=== PATIENT | male | born 1960 | race Caucasian/White ===

== ENCOUNTER → 2016-07-04 | Outpatient (CLI) | payer BC ==
[2016-07-04 11:29] LABS: ALT 62 U/L (21-72); AST 34 U/L (17-59); Alkaline Phosphatase 68 U/L (38-126); Anion Gap 10 mmol/L; Blood Urea Nitrogen 15 mg/dL (9-20); Calcium 9.4 mg/dL (8.4-10.2); Carbon Dioxide 27 mmol/L (22-30); Chloride 106 mmol/L (98-107); Cholesterol 224 mg/dL (<200); Glucose 114 mg/dL (74-99); HDL Cholesterol 38 mg/dL (40-60); Non-African American GFR(MDRD) >60 (>60 ml/min/1.73 sqM); Potassium 4.7 mmol/L (3.5-5.1); Sodium 143 mmol/L (137-145); Total Bilirubin 1.4 mg/dL (0.2-1.3); Total Protein 7.6 g/dL (6.3-8.2); Triglycerides 212 mg/dL (<150)
== END | disposition home or self-care (01) ==
LOC: LABWHC1 10:25
PROVIDERS: ATTEND Internal Medicine Interventional Cardiology
DX: E78.2 Mixed hyperlipidemia (principal)
CPT/HCPCS: 36415; 80053; 80061

== ENCOUNTER 2017-11-19 05:15 | Emergency (ER) | payer BC ==
[2017-11-19 05:22] VITALS: PULSE 78
[2017-11-19] MEDS ORDERED: ONDANSETRON 4 MG/2 ML VIAL IVP STA (05:41)
[2017-11-19 05:42] LABS: Basophils % (A) 1 %; Eosinophils # (A) 0.1 k/uL (0-0.7); Eosinophils % (A) 2 %; HCT 45.8 % (39.0-53.0); HGB 15.4 gm/dL (13.0-17.5); Lymphocytes % (A) 34 %; MCHC 33.7 g/dL (31.0-37.0); MCV 86.1 fL (80.0-100.0); Mean Platelet Volume 7.1; Monocytes # (A) 0.4 k/uL (0-1.0); Monocytes % (A) 7 %; Neutrophils # (A) 3.2 k/uL (1.3-7.7); Neutrophils % (A) 54 %; Platelet Count 207 k/uL (150-450); RBC 5.32 m/uL (4.30-5.90); RDW 14.2 % (11.5-15.5); WBC 5.8 k/uL (3.8-10.6)
--- NOTE | 2017-11-19 05:44 | ED ---
Abdominal Pain HPI - General Chief Complaint: Abdominal Pain Stated Complaint: Side pain Time Seen by Provider: 11/19/17 05:25 Source: patient Mode of arrival: ambulatory Limitations: no limitations - History of Present Illness Initial Comments: This patient's 57-year-old man who presents to be evaluated for right flank pain that he states woke him from sleep about 3:30. He describes as sharp, constant, it was initially mild to moderate but now has become severe. He states that while he was coming here to be seen about this she did have an episode of vomiting. He denies history of similar. He has not noted worsening or relieving factors. No other associated symptoms, including no fever or chills, no chest pain, cough or dyspnea. No change in urination or bowel movements. No symptoms to the legs. MD Complaint: abdominal pain Onset/Timin -: hour(s) Location: R flank Radiation: none Migration to: no migration Severity: severe Quality: sharp Consistency: constant Improves With: nothing Worsens With: nothing Associated Symptoms: nausea, vomiting - Related Data Home Medications Medication Instructions Recorded Confirmed Ezetimibe [Zetia] 10 mg PO DAILY 11/19/17 11/19/17 Previous Rx's Medication Instructions Recorded Ketorolac [Toradol] 10 mg PO Q6HR PRN #15 tab 11/19/17 Ondansetron Odt [Zofran ODT] 4 mg PO Q8HR PRN #10 tab 11/19/17 Tamsulosin [Flomax] 0.4 mg PO DAILY #14 cap 11/19/17 Allergies Allergy/AdvReac Type Severity Reaction Status Date / Time iodine Allergy Rash/Hives Verified 11/19/17 05:23 Review of Systems ROS Statement: Those systems with pertinent positive or pertinent negative responses have been documented in the HPI. ROS Other: All systems not noted in ROS Statement are negative. Constitutional: Denies: fever, chills Respiratory: Denies: cough, dyspnea Cardiovascular: Denies: chest pain, palpitations Gastrointestinal: Reports: abdominal pain, nausea, vomiting. Denies: diarrhea, constipation, hematemesis Genitourinary: Denies: dysuria, hematuria Musculoskeletal: Denies: back pain Skin: Denies: rash Neurological: Denies: headache, weakness, numbness Past Medical History Past Medical History: Hyperlipidemia History of Any Multi-Drug Resistant Organisms: None Reported Past Surgical History: Orthopedic Surgery Additional Past Surgical History / Comment(s): back sx. Past Psychological History: No Psychological Hx Reported Smoking Status: Never smoker Past Alcohol Use History: Occasional Past Drug Use History: None Reported General Exam Limitations: no limitations General appearance: alert, in no apparent distress, obese Head exam: Present: atraumatic, normocephalic Eye exam: Present: normal appearance. Absent: scleral icterus, conjunctival injection ENT exam: Present: normal oropharynx Neck exam: Present: normal inspection Respiratory exam: Present: normal lung sounds bilaterally. Absent: respiratory distress, wheezes, rales, rhonchi, stridor Cardiovascular Exam: Present: regular rate, normal rhythm, normal heart sounds. Absent: systolic murmur, diastolic murmur, rubs, gallop GI/Abdominal exam: Present: soft. Absent: distended, tenderness, guarding, rebound, rigid, mass, pulsatile mass, hernia Extremities exam: Present: normal inspection, normal capillary refill. Absent: pedal edema, calf tenderness Back exam: Present: normal inspection. Absent: CVA tenderness (R), CVA tenderness (L) Neurological exam: Present: alert Skin exam: Present: warm, dry, intact, normal color. Absent: rash Course Vital Signs 11/19/17 05:19 Temperature 97.8 F Pulse Rate 78 Respiratory 20 Rate Blood Pressure 178/101 O2 Sat by Pulse 96 Oximetry Medical Decision Making - Lab Data Result diagrams: 11/19/17 05:29 11/19/17 05:29 Lab Results 11/19/17 11/19/17 Range/Units 05:29 05:29 WBC 5.8 (3.8-10.6) k/uL RBC 5.32 (4.30-5.90) m/uL Hgb 15.4 (13.0-17.5) gm/dL Hct 45.8 (39.0-53.0) % MCV 86.1 (80.0-100.0) fL MCH 29.0 (25.0-35.0) pg MCHC 33.7 (31.0-37.0) g/dL RDW 14.2 (11.5-15.5) % Plt Count 207 (150-450) k/uL Neutrophils % 54 % Lymphocytes % 34 % Monocytes % 7 % Eosinophils % 2 % Basophils % 1 % Neutrophils # 3.2 (1.3-7.7) k/uL Lymphocytes # 2.0 (1.0-4.8) k/uL Monocytes # 0.4 (0-1.0) k/uL Eosinophils # 0.1 (0-0.7) k/uL Basophils # 0.0 (0-0.2) k/uL Sodium 143 (137-145) mmol/L Potassium 4.4 (3.5-5.1) mmol/L Chloride 106 (98-107) mmol/L Carbon Dioxide 24 (22-30) mmol/L Anion Gap 13 mmol/L BUN 21 H (9-20) mg/dL Creatinine 1.28 H (0.66-1.25) mg/dL Est GFR (CKD-EPI)AfAm 72 (>60 ml/min/1.73 sqM) Est GFR (CKD-EPI)NonAf 62 (>60 ml/min/1.73 sqM) Glucose 181 H (74-99) mg/dL Calcium 9.2 (8.4-10.2) mg/dL Total Bilirubin 0.9 (0.2-1.3) mg/dL AST 36 (17-59) U/L ALT 51 (21-72) U/L Alkaline Phosphatase 73 (38-126) U/L Total Protein 6.9 (6.3-8.2) g/dL Albumin 4.4 (3.5-5.0) g/dL Amylase 63 (30-110) U/L Lipase 94 (23-300) U/L Disposition Clinical Impression: Calculus of kidney Disposition: HOME SELF-CARE Condition: Good Instructions: Kidney Stones (ED) Prescriptions: Ketorolac [Toradol] 10 mg PO Q6HR PRN #15 tab PRN Reason: Pain Ondansetron Odt [Zofran ODT] 4 mg PO Q8HR PRN #10 tab PRN Reason: Nausea Tamsulosin [Flomax] 0.4 mg PO DAILY #14 cap Is patient prescribed a controlled substance at d/c from ED?: No Referrals: Alicia Carrion DO [Primary Care Provider] - 1-2 days
[2017-11-19] MEDS: MORPHINE SULFATE 2 MG/ML SYRINGE IV STA ×2 (05:46→06:28)
[2017-11-19 05:53] LABS: Albumin 4.4 g/dL (3.5-5.0); Calcium 9.2 mg/dL (8.4-10.2); Potassium 4.4 mmol/L (3.5-5.1); Total Bilirubin 0.9 mg/dL (0.2-1.3); Total Protein 6.9 g/dL (6.3-8.2)
[2017-11-19] MEDS ORDERED: KETOROLAC 30 MG/ML 1 ML VIAL IVP STA (06:20)
[2017-11-19] MEDS ORDERED: MORPHINE SULFATE 2 MG/ML SYRINGE IV STA ×2 (06:20→07:31)
[2017-11-19] MEDS ORDERED: TAMSULOSIN 0.4 MG CAP.ER.24H PO STA (06:22)
--- NOTE | 2017-11-19 07:14 | CT ---
EXAM: CT Abdomen and Pelvis Without Intravenous Contrast. CLINICAL HISTORY: Right flank pain. TECHNIQUE: Axial computed tomography images of the abdomen and pelvis without intravenous contrast. CTDI is 23.7 mGy and DLP is 1320 mGy-cm. This CT exam was performed using one or more of the following dose reduction techniques: automated exposure control, adjustment of the mA and/or kV according to patient size, and/or use of iterative reconstruction technique. COMPARISON: No relevant prior studies available. FINDINGS: Lower thorax: No acute findings. ABDOMEN: Liver: Hepatic steatosis. Within the limitations of a nonenhanced exam, no focal hepatic lesion is identified. Gallbladder and bile ducts: Unremarkable. No calcified stones. No ductal dilation. Pancreas: Unremarkable. No ductal dilation. Spleen: Unremarkable. No splenomegaly. Adrenals: Unremarkable. No mass. Kidneys and ureters: There is a 3 mm calculus at the right ureterovesical junction, with mild right-sided hydronephrosis and hydroureter. Findings are consistent with right-sided obstructive uropathy. No additional calculi are seen within the renal collecting systems, ureters or urinary bladder. PELVIS: Bladder: Unremarkable. No stones. Reproductive: Unremarkable as visualized. Appendix: No findings to suggest acute appendicitis. ABDOMEN + PELVIS: Stomach and bowel: No evidence of bowel obstruction. No definite bowel wall thickening. Scattered colonic diverticula without evidence of acute diverticulitis. Peritoneum: Unremarkable. No significant fluid collection. No free air. Lymph nodes: Unremarkable. No enlarged lymph nodes. Vasculature: Unremarkable. No aortic aneurysm. Bones: No acute fracture. Lumbar stabilization hardware seen at L3 and L4. IMPRESSION: 3 mm obstructing calculus at right UVJ with mild right-sided hydroureteronephrosis. Findings consistent with right-sided obstructive uropathy. Hepatic steatosis. Scattered colonic diverticula without evidence of acute diverticulitis..
[2017-11-19 07:44] VITALS: BP 160/82; RESP 18; TEMP 96.8
== END 2017-11-19 08:04 | disposition home or self-care (01) ==
LOC: EC 05:15
DX: N20.0 Calculus of kidney (principal); E78.5 Hyperlipidemia, unspecified; Z79.899 Other long term (current) drug therapy; Z88.8 Allergy status to other drugs, medicaments and biological substances; Z53.8 Procedure and treatment not carried out for other reasons
CPT/HCPCS: 36415; 80053; 82150; 83690; 85025; 74176; 99284; 96374; 96375 ×2; 96376; J2405; J1885; J2270

== ENCOUNTER 2018-12-06 11:23 | Emergency (ER) | payer BC ==
[2018-12-06 11:45] VITALS: RESP 18
--- NOTE | 2018-12-06 11:56 | ED ---
General Adult HPI - General Chief complaint: Extremity Problem,Nontraumatic Stated complaint: lt knee pain Time Seen by Provider: 12/06/18 11:48 Source: patient, family, RN notes reviewed Mode of arrival: wheelchair Limitations: no limitations - History of Present Illness Initial comments: 58-year-old male presents to the emergency department for a chief complaint of left knee pain 4 days. 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 States he noticed this pain while walking. States it is mostly anterior knee pain. States it does not hurt unless he is walking on it. States it does not hurt to bend or if he is just laying there. Denies fevers or chills. Denies any redness or swelling to the knee. Denies any specific injuries. States he [facility] but they did not take walk-ins so he came here.she does have chronic back pain and did have surgery on his left ankle earlier this year due to impingement. Patient has no other complaints at this time including shortness of breath, chest pain, abdominal pain, nausea or vomiting, headache, or visual changes. - Related Data Home Medications Medication Instructions Recorded Confirmed Ezetimibe [Zetia] 10 mg PO DAILY 11/19/17 12/06/18 Ibuprofen [Motrin Ib] 600 mg PO Q6H PRN 12/06/18 12/06/18 Allergies Allergy/AdvReac Type Severity Reaction Status Date / Time iodine Allergy Rash/Hives Verified 12/06/18 11:58 Review of Systems ROS Statement: Those systems with pertinent positive or pertinent negative responses have been documented in the HPI. ROS Other: All systems not noted in ROS Statement are negative. Past Medical History Past Medical History: Hyperlipidemia History of Any Multi-Drug Resistant Organisms: None Reported Past Surgical History: Orthopedic Surgery Additional Past Surgical History / Comment(s): back sx. Past Psychological History: No Psychological Hx Reported Smoking Status: Never smoker Past Alcohol Use History: Occasional Past Drug Use History: None Reported General Exam Limitations: no limitations General appearance: alert, in no apparent distress Head exam: Present: atraumatic, normocephalic, normal inspection Eye exam: Present: normal appearance, PERRL, EOMI. Absent: scleral icterus, conjunctival injection, periorbital swelling ENT exam: Present: normal exam, mucous membranes moist Neck exam: Present: normal inspection, full ROM. Absent: tenderness, meningismus Respiratory exam: Present: normal lung sounds bilaterally. Absent: respiratory distress, wheezes, rales, rhonchi, stridor Cardiovascular Exam: Present: regular rate, normal rhythm, normal heart sounds. Absent: systolic murmur, diastolic murmur, rubs, gallop, clicks Extremities exam: Present: normal inspection, full ROM (4 range of motion of the left knee), normal capillary refill (Capillary refill less than 2 seconds, DP pulse 2+.). Absent: tenderness (No tenderness to the left knee), pedal edema, joint swelling (No swelling or erythema noted to the left knee. No evidence of infection.), calf tenderness (No tenderness of the left calf) Course Vital Signs 12/06/18 11:41 Temperature 98.9 F Pulse Rate 90 Respiratory 18 Rate Blood Pressure 125/73 O2 Sat by Pulse 96 Oximetry Medical Decision Making - Medical Decision Making 58-year-old male presents for left knee pain 4 days. 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 States he noticed the anterior knee pain while walking. States today he felt a pop. It is does not hurt unless he is walking on it. On exam full range motion, no erythema, no evidence of infection. Patient is able to family but does limp on the knee. Neurovascular status intact in the left lower extremity. X-ray of the left knee shows joint effusion without fracture or dislocation. Concern for ligamentous injury. Patient was put in a knee immobilizer and given crutches. Recommended orthopedics follow-up. Recommended returning if he has any worsening symptoms. Disposition Clinical Impression: Knee pain, left Disposition: HOME SELF-CARE Condition: Good Instructions (If sedation given, give patient instructions): Knee Pain (ED) Additional Instructions: Please use knee immobilizer as directed. Please use crutches as needed. Take Motrin and Tylenol for pain. Follow-up with primary care in 1-2 days. Return to the emergency department if you have any worsening symptoms. Is patient prescribed a controlled substance at d/c from ED?: No Referrals: Alicia Carrion DO [Primary Care Provider] - 1-2 days Charbel Whitehead MD [STAFF PHYSICIAN] - 1-2 days Time of Disposition: 12:53
--- NOTE | 2018-12-06 12:32 | XR ---
Left knee HISTORY: pain, swelling 3 views of the left knee Bone mineralization, joint spaces and alignment are maintained. Suprapatellar increased density is no carmenza. IMPRESSION: Joint effusion. No fracture or dislocation.
[2018-12-06 13:16] VITALS: BP 127/75; PULSE 82; TEMP 98.8
== END 2018-12-06 13:15 | disposition home or self-care (01) ==
LOC: EC 11:23
DX: M25.562 Pain in left knee (principal); G89.29 Other chronic pain; M54.9 Dorsalgia, unspecified; E78.5 Hyperlipidemia, unspecified; Z91.048 Other nonmedicinal substance allergy status; Z79.899 Other long term (current) drug therapy; Z98.890 Other specified postprocedural states
CPT/HCPCS: 73562; 99283; L1830

== ENCOUNTER → 2018-12-15 | Outpatient (CLI) | payer BC ==
--- NOTE | 2018-12-15 08:24 | MR ---
EXAMINATION TYPE: MR knee LT wo con DATE OF EXAM: 12/15/2018 COMPARISON: X-ray dated 12/08/2018 HISTORY: Left knee pain TECHNIQUE: Multiplanar, multisequence imaging of the left knee is performed without IV contrast. FINDINGS: Quadriceps and patellar tendons intact. Anterior cruciate and posterior cruciate ligaments intact. Th ere is a small focal area of marrow edema involving the posterior lateral tibial plateau. There is a complex tear involving the posterior horn of the medial meniscus. Lateral meniscus intact. Medial collateral and lateral collateral ligaments intact. Small amount of fluid in the suprapatellar bursa. Patellar cartilage is maintained. There is a small cyst within the popliteal fossa measuring 1.1 x 0.7 x 4.6 cm. IMPRESSION: 1. Complex tear posterior horn medial meniscus. 2. Popliteal fossa cyst measuring 1.1 x 0.7 x 4.6 cm
== END | disposition home or self-care (01) ==
LOC: RADMRIMAIN 07:27
PROVIDERS: ATTEND Orthopaedic Surgery
DX: S83.232A Complex tear of medial meniscus, current injury, left knee, initial encounter (principal); M71.22 Synovial cyst of popliteal space [Baker], left knee

== ENCOUNTER → 2018-12-20 | Outpatient (CLI) | payer BC ==
[2018-12-20 12:26] LABS: Basophils % (A) 1 %; Eosinophils # (A) 0.1 k/uL (0-0.7); Eosinophils % (A) 2 %; HCT 44.3 % (39.0-53.0); HGB 14.7 gm/dL (13.0-17.5); Lymphocytes # (A) 1.5 k/uL (1.0-4.8); Lymphocytes % (A) 27 %; MCH 28.1 pg (25.0-35.0); MCHC 33.1 g/dL (31.0-37.0); MCV 84.9 fL (80.0-100.0); Mean Platelet Volume 7.3; Monocytes # (A) 0.4 k/uL (0-1.0); Monocytes % (A) 7 %; Neutrophils # (A) 3.4 k/uL (1.3-7.7); Neutrophils % (A) 62 %; Platelet Count 192 k/uL (150-450); RBC 5.22 m/uL (4.30-5.90); RDW 15.8 % (11.5-15.5); WBC 5.5 k/uL (3.8-10.6)
[2018-12-20 12:31] LABS: Potassium 4.4 mmol/L (3.5-5.1)
== END | disposition home or self-care (01) ==
LOC: LABPAT 11:45
PROVIDERS: ATTEND Orthopaedic Surgery
DX: Z01.812 Encounter for preprocedural laboratory examination (principal); Z01.818 Encounter for other preprocedural examination; M23.92 Unspecified internal derangement of left knee
CPT/HCPCS: 36415; 80051; 85025

== ENCOUNTER 2018-12-24 07:47 | Day surgery (SDC) | payer BC ==
[2018-12-21 13:30] VITALS: BMI 38.6
--- NOTE | 2018-12-23 19:58 | HP ---
HISTORY AND PHYSICAL CHIEF COMPLAINT: Left knee pain. HISTORY OF PRESENT ILLNESS: The patient is a 58-year-old adhikari who presents with compressive left knee pain after a previous injury on January 04, 2019. He notes medial pain and intermittent giving way that limits him. He has tried rest in addition to anti-inflammatories, without much relief. He notes it significantly slows him down. PAST MEDICAL HISTORY: Significant for hypercholesterolemia. PAST SURGICAL HISTORY: 1. Left ankle surgery. 2. Lumbar spine surgery. 3. Bilateral foot surgery. CURRENT MEDICATIONS: 1. Zetia. 2. Ibuprofen. ALLERGIES: IODINE. FAMILY HISTORY: Significant for cancer. SOCIAL HISTORY: Significant for social alcohol use. REVIEW OF SYSTEMS: Sixteen-point review of systems otherwise reviewed and is noncontributory. PHYSICAL EXAMINATION: On examination, the patient is approximately 6 feet tall, 200 pounds of endomorphic habitus. HEENT exam is nonfocal. NECK: Supple. He has painless passive motion of his left hip. Mbuohqni-[id number] is negative. Active motion of left knee -10 to 120 degrees of flexion. He is tender about the medial joint line. Collaterals are stable. Chaim is negative. Rosey's elicits medial pain. His distal neurovascular exam appears intact in the left lower extremity. IMAGING: MRI report 12/15/2018, left knee, shows a posteromedial meniscal tear. IMPRESSION: Internal derangement of left knee with symptomatic medial meniscal tear. RECOMMENDATIONS: I talked to the patient at length regarding his condition along with treatment options. At this point he is having significant pain and mechanical symptoms that limit him. After a thorough discussion, he opted to proceed with surgery. We will plan to proceed with arthroscopic evaluation with probable partial medial meniscectomy. We will likely perform that as an outpatient procedure. Risks and benefits were discussed at length in layman's terms. MMODL / IJN: [id number] /
[~2018-12-24 07:47] MED LIST: HYDROmorphone 0.5 MG/0.5 ML SYRINGE IVP PRN; LACTATED RINGERS 1,000 ML IV SCH; ceFAZolin 3 GM in SODIUM CHLORIDE 0.9% 100 ML IVPB ONE
[2018-12-24] MEDS ORDERED: LIDOCAINE 1% 20 ML VIAL (10MG/ML) FOR IV START INTRADERMA ONE (08:27)
[2018-12-24] MEDS ORDERED: DEXAMETHASONE SOD PHOSPHATE 10 MG/ML 1 ML VIAL IV ONE (08:41)
[2018-12-24] MEDS ORDERED: ONDANSETRON 4 MG/2 ML VIAL IVP ONE (08:41)
[2018-12-24] MEDS ORDERED: KETOROLAC 30 MG/ML 1 ML VIAL ONE (08:56)
[2018-12-24] MEDS ORDERED: fentaNYL (PF) 50 MCG/ML 2 ML AMP ONE (08:56)
[2018-12-24] MEDS ORDERED: MIDAZOLAM 2 MG/2 ML VIAL ONE (08:56)
[2018-12-24] MEDS ORDERED: HYDROmorphone (PF) 1 MG/ML ONE (08:56)
[2018-12-24] MEDS ORDERED: PROPOFOL 10 MG/ML 20 ML VIAL IV ONE (08:56)
[2018-12-24] MEDS ORDERED: LIDOCAINE 1% INJ 10MG/ML (20 ML MDV) ONE (08:56)
[2018-12-24] MEDS ORDERED: EPINEPHrine (PF) 1 ML in SODIUM CHLORIDE 0.9% IRRIGATIO 3,000 ML IRRIGATION ONE ×2 (09:28→09:29)
--- NOTE | 2018-12-24 09:45 | P.OP ---
Date of Procedure: 12/24/18 Preoperative Diagnosis: Left knee internal derangement Postoperative Diagnosis: Left knee posterior medial meniscal tear/posterior lateral meniscal tear/reactive synovitis of the medial, lateral, and patellofemoral compartments. Procedure(s) Performed: Left knee arthroscopic partial medial meniscectomy/partial lateral meniscectomy/partial synovectomy of the medial, lateral, and patellofemoral compartments. Anesthesia: GETA Surgeon: Charbel Whitehead Estimated Blood Loss (ml): 10 Pathology: none sent Condition: stable Disposition: PACU Indications for Procedure: The patient's a 58-year-old male who presents with progressive left knee pain and mechanical symptoms after a previous twisting injury. A discussion of the risks and benefits of operative intervention versus continued conservative measures was made with the patient. He opted to proceed with surgery. Operative risks to include infection, neurovascular injury, development of blood clots, possible incomplete resolution of symptoms, possible worsening of symptoms and need for subsequent procedures was discussed. Informed consent was obtained. Operative Findings: As below Description of Procedure: The patient was brought to the operating room, and after induction of general anesthesia examined the left knee. Collaterals were stable, Chaim was negative, and posterior drawer was negative. The left lower extremity was prepped and draped in a normal fashion. A superior lateral portal was made through a 3 mm skin incision superior and lateral to the patella. This was used for outflow. A lateral portal was made through a 5 mm vertical skin incision lateral to the patella tendon above the joint line. Diagnostic arthroscopy was performed. On inspection of the medial compartment, a complex tear involving the posterior most aspect of the medial meniscus in the white-red junction was noted.. This was debrided back to stable base with straight baskets and a motorized shaver. Grade 2 chondral changes were noted diffusely in the medial c ompartment. Reactive synovitis involving the anterior medial compartment was debrided with a motorized shaver. On inspection of the notch, the anterior cruciate ligament appeared to be intact. On inspection of the lateral compartment, a degenerative tear involving the posterior horn of the lateral meniscus in the white-white junction was noted. This was debrided back to stable base with a motorized shaver. Reactive synovitis involving the anterior lateral compartment was debrided with motorized shaver. On inspection of the patellofemoral articulation there were diffuse grade 2 chondral changes however no loose chondral fragments. Reactive synovitis involving the patellofemoral articulation was debrided with a motorized shaver. The gutters were clear debris. The knee was then thoroughly irrigated. The portals were closed with Steri-Strips. A sterile dressing was applied in addition to a compression stocking. The patient was awoken from general anesthesia and transferred to r ecovery room in good condition. Blood loss was estimated at 10 mL. No complications were incurred.
[2018-12-24 09:50] VITALS: RESP 16; TEMP 97.2
[2018-12-24 11:17] VITALS: BP 128/77; PULSE 75
== END 2018-12-24 12:10 | disposition home or self-care (01) ==
LOC: OR 07:47
PROVIDERS: ATTEND Orthopaedic Surgery
DX: S83.232A Complex tear of medial meniscus, current injury, left knee, initial encounter (principal); S83.282A Other tear of lateral meniscus, current injury, left knee, initial encounter; X50.1XXA Overexertion from prolonged static or awkward postures, initial encounter; M65.88 Other synovitis and tenosynovitis, other site; E78.00 Pure hypercholesterolemia, unspecified; E78.5 Hyperlipidemia, unspecified; G47.33 Obstructive sleep apnea (adult) (pediatric); Z99.89 Dependence on other enabling machines and devices; Z79.1 Long term (current) use of non-steroidal anti-inflammatories (NSAID); Z79.899 Other long term (current) drug therapy; Z91.048 Other nonmedicinal substance allergy status
CPT/HCPCS: 29880; J2250; J1100; J0690; J2405; J0171; J2001; J3010; J1885; J1170; J2704

== ENCOUNTER → 2019-01-04 | Outpatient (CLI) | payer BC ==
--- NOTE | 2019-01-04 17:22 | CONS ---
CONSULTATION REASON FOR CONSULTATION: Sleep apnea. This is a 58-year-old adhikari, a pleasant male patient with known history of obstructive sleep apnea who was diagnosed more than 10 years ago. His diagnosis was established through [facility]. The results of his sleep study were not available. Recently he was trying to get a followup with them and he was unable to get in; and for that reason, he came into our office to establish himself regarding his JATIN needs. The patient has had several CPAP machines over the years. This is the third machine that he is using. He has a ResMed AirSense AutoSet which is an APAP unit set at a minimum pressure of 6, maximum pressure of 9. He denies having any significant weight gain or weight loss over the years. He is currently weighing about 290 pounds with a BMI of 40.4. He feels that the delivery pressure by the machine is low and sometimes he gets uncomfortable and he snores. His current [place] score is 5. I checked the compliance data, and over the past 30 days the patient has used his CPAP machine for more than 4 hours 60% of the time. His leak at 8 L/minute. His average pressure is 8.8. His AHI is down to 5 while on treatment. He is going to bed around 9:30 or 10 p.m., waking up between 4 and 4:30 a.m. in the morning. He sleeps on his back. He reads in his bedroom. No recent weight gain, as mentioned. No excessive intake of alcoholic beverages or caffeinated beverages at bedtime. No sleep paralysis. No hallucinations or cataplexy. PAST MEDICAL HISTORY: 1. Obstructive sleep apnea. 2. Obesity. 3. Hyperlipidemia. 4. Chronic back pain. PAST SURGICAL HISTORY: Past surgical history includes: 1. Left knee replacement. 2. Surgery for plantar fasciitis. 3. Back fusion. DRUG ALLERGIES: IV DYE. The patient has hayfever. SOCIAL HISTORY: The patient is a nonsmoker. No history of alcoholism. No history of IV drugs. He is a adhikari. MEDICATION: Medication includes Zetia. REVIEW OF SYSTEMS: Fourteen-point review of systems was done. Snoring occasionally while on CPAP therapy. No insomnia. No choking or gasping for air. No grinding of the teeth. No sleepwalking. No dry mouth. No anxiety or panic attacks. No palpitations. No heartburn. No anxiety. No sexual dysfunction. No depression. No acid reflux. No issues with anemia or GI bleed. PHYSICAL EXAMINATION: VITAL SIGNS: BP is 154/73, pulse 96, respirations 16, temperature 98.6, saturation 96% on room air. Height is 5 feet 11 inches, weight 290 and BMI is 40.4. Neck size is 19- 3/4 inches. [place] score is 5. GENERAL APPEARANCE: Obese, calm, comfortable. No acute distress. HEAD: Atraumatic, normocephalic. NECK: Supple. Mallampati class IV. No goiter or neck masses. LUNGS: Clear to auscultation. HEART: Heart sounds are regular rate and rhythm. Normal S1, S2. No S3, S4. No murmurs. ABDOMEN: Soft, nontender. No organomegaly. EXTREMITIES: No edema. No cyanosis or clubbing. NEUROLOGIC: Alert and oriented x3. There are no focal neurological deficits. PSYCHIATRIC: Negative for anxiety or depression. SKIN: Negative for any wounds or ulceration. IMPRESSION: 1. Obstructive sleep apnea, currently on APAP, minimum of 6, maximum of 9. 2. Obesity with body mass index of 40.4. 3. Degenerative arthritis and chronic back pain. 4. Hyperlipidemia. PLAN: Checked the CPAP unit. Checked the compliancy data. I would recommend changing the setting to a minimum of 6 and a maximum of 15 to allow the machine to deliver higher pressure if needed to bring his AHI to less than 5 and maintain good compliance. Will keep the AirFit P10 nose pillows. The patient has a SoClean unit which he is utilizing. He has turned off his humidity and the temperature of the tubing and climate control, which is fine. Encourage weight loss. Implement good sleep hygiene measures. He will establish himself in my office. I will try to retrieve his sleep study from [facility]. He will see me back in a year's time in followup, earlier if needed. MMODL / IJN: [id number] /
== END | disposition home or self-care (01) ==
CPT/HCPCS: 99211

== ENCOUNTER → 2019-03-04 | Outpatient (CLI) | payer BC ==
--- NOTE | 2019-03-04 08:30 | MR ---
EXAMINATION TYPE: MR lumbar spine wo con DATE OF EXAM: 03/04/2019 COMPARISON: None HISTORY: 58-year-old male degenerative lumbar disc TECHNIQUE: Multiplanar, multisequence images of the lumbar spine were acquired. Findings: Extensive metal hardware blooming artifact obscuring the L3 and L4 levels. The spinal canal at these levels is not assessed nor are the L3-L4 neuroforamina. The discs remain hydrated along the visualized levels with minimal diffuse bulging at L5-S1. Conus medullaris appears normal. Hypertrophic facet arthropathy lower lumbar spine. Superior endplate Schmorl's node of L2 appears chronic. Overall vertebral body heights are maintained . No suspicious bone marrow replacement. Along the visualized levels, no spinal canal stenosis. On the left at L4-L5, and minimal to exclude neural foraminal stenoses on both sides. At L5-S1, on the right, there is moderate neuroforaminal narrowing with prominent abutment of the exi ting right L5 nerve root. Mild narrowing on the left. IMPRESSION: 1. Very limited exam due to extensive metal hardware artifact from the patient's L3-L4 posterior lumb ar fusion. The L3 and L4 levels are nondiagnostic. Metal artifacts are exacerbated on the 3 Selene mag net and even limit assessment at the L2-L3 level. 2. Hypertrophic facet arthropathy lower lumbar spine. Along the visualized levels, no spinal canal st enosis is seen. 3. Moderate right neuroforaminal stenosis at L5-S1 with prominent abutment of the exiting right L5 ne rve root.
== END | disposition home or self-care (01) ==
LOC: RADMRIMAIN 06:05
PROVIDERS: ATTEND Neurological Surgery
DX: M48.07 Spinal stenosis, lumbosacral region (principal); M46.96 Unspecified inflammatory spondylopathy, lumbar region; Z98.1 Arthrodesis status
CPT/HCPCS: 72148

== ENCOUNTER → 2019-04-21 | Day surgery (SDC) | payer BC ==
[~2019-04-21] MED LIST changes: +Acetaminophen-Codeine 300-30mg TAB PO PRN; +DIAZEPAM 5 MG TAB PO ONE; -HYDROmorphone 0.5 MG/0.5 ML SYRINGE IVP PRN; -LACTATED RINGERS 1,000 ML IV SCH; +PREMYELOGRAM MEDICATION REVIEW 1 EACH MISC PO NR; -ceFAZolin 3 GM in SODIUM CHLORIDE 0.9% 100 ML IVPB ONE
[2019-04-21 08:34] VITALS: TEMP 98.4
[2019-04-21 10:10] VITALS: RESP 16
--- NOTE | 2019-04-21 12:06 | CT ---
EXAMINATION TYPE: CT myelogram lumbar spine DATE OF EXAM: 04/21/2019 COMPARISON: None HISTORY: 58-year-old male other intervertebral disc degeneration. Evaluation prior to spinal stimulat or placement. TECHNIQUE: Contiguous axial scanning of the lumbar spine performed after intrathecal injection after 12 mL Isovue-200 IV contrast. Coronal and sagittal reconstructions performed. Additional delayed pron e imaging was performed for better opacification of the thecal sac. CT DLP: 4322.6 mGycm Automated exposure control for dose reduction was used. 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 Interbody ankylosis across L1-L2. Additional bony ankylosis involving their posterior elements. Posterior lumbar fusion at L3-L4. Conus medullaris is seen at the L1 level. Vertebral body heights are preserved and alignment is maintained. Facet arthropathy throughout. No focal disc herniation. No spinal canal stenosis. On the left, facet arthropathy and bulging disc contributes to moderate neural foraminal narrowing an d L1-L2 and L5-S1. Mild at L4-L5. On the right, facet arthropathy and bulging disc contributes to moderate neuroforaminal narrowing at L1-L2, L4-L5, and L5-S1. IMPRESSION: 1. STATUS POST L3-L4 POSTERIOR LUMBAR FUSION. 2. BONY ANKYLOSIS ACROSS L1-L2. HYPEROSTOTIC CHANGES RESULT IN MODERATE NEUROFORAMINAL NARROWING ON B OTH SIDES AT THIS LEVEL. 3. SCATTERED FACET ARTHROPATHY AND MINIMAL BULGING DISCS. ON THE LEFT, CHANGES RESULT IN MODERATE THEODORA RAL FORAMINAL STENOSIS AT L5-S1. 4. MILD RIGHT NEUROFORAMINAL STENOSIS AT L4-L5 AND L5-S1. 5. THE LUMBAR SPINAL CANAL APPEARS WIDELY PATENT. NO FOCAL DISC HERNIATION.
[2019-04-21 15:08] VITALS: BP 128/60; PULSE 76
--- NOTE | 2019-04-21 18:55 | FL ---
PROCEDURE: Lumbar puncture for lumbar myelogram. DATE: 04/21/2019 CLINICAL HISTORY: 58-year-old male other intervertebral disc degeneration, low back pain, prior low b ack surgery. Planning for spinal stimulator placement. COMPLICATIONS: None Correlation: CT abdomen and pelvis 11/19/2017. SEDATION: Oral Valium was administered by nursing personnel. The patient and the patient's vital signs were mo nitored by qualified independent radiology personnel. The patient was premedicated with a 13 hour prep comprised of oral prednisone and Benadryl. Previous allergy noted to be a rash. TECHNIQUE: The procedure and potential risks were explained to patient and an informed consent was obtained with teach back. Site and side was verified. A time out was performed. The patient was placed prone on the fluoroscopy table and the L4-L5 level was localized and the skin was marked and was prepped and draped in the usual sterile fashion. L3-L4 posterior lumbar fusion hardware is demonstrated. Lidocaine was used for local anesthesia. Utilizing fluoroscopic guidance a long 22-gauge spinal needl e was placed through the skin and into the subarachnoid space. Initial blood tinged then clear CSF was visualized at the needle hub. Subsequently, 12 mL of Isovue-M 200 was injected into the thecal sac without difficulty. The table wa s manipulated to move the contrast along the length of the lumbar spine. The patient tolerated the procedure well and was sent to CT for CT lumbar myelogram. The estimated blood loss was minimal. The patient's condition was unchanged following the procedure. Fluoroscopy time: 3 minutes 28 seconds Total images: 4. IMPRESSION: Successful contrast injection into the subarachnoid space of the lumbar spine for CT lumbar myelogram .
== END ==
LOC: RADPROMAIN 07:56
PROVIDERS: ATTEND Neurological Surgery
DX: M51.36 Other intervertebral disc degeneration, lumbar region (principal); M47.816 Spondylosis without myelopathy or radiculopathy, lumbar region; M43.27 Fusion of spine, lumbosacral region; M48.061 Spinal stenosis, lumbar region without neurogenic claudication; M48.07 Spinal stenosis, lumbosacral region; E78.00 Pure hypercholesterolemia, unspecified; E66.9 Obesity, unspecified; G47.30 Sleep apnea, unspecified; Z98.1 Arthrodesis status; Z98.52 Vasectomy status; Z79.899 Other long term (current) drug therapy; Z91.048 Other nonmedicinal substance allergy status; Z83.3 Family history of diabetes mellitus; Z81.8 Family history of other mental and behavioral disorders; Z80.9 Family history of malignant neoplasm, unspecified; Z68.41 Body mass index [BMI] 40.0-44.9, adult
CPT/HCPCS: 62304; 72132; Q9966

== ENCOUNTER → 2024-05-09 | Outpatient (CLI) | payer BC ==
[2024-05-09 13:56] LABS: Partial Thromboplastin Time 25.2 sec (22.0-30.0); Prothrombin Time 10.6 sec (10.0-12.5)
[2024-05-09 15:59] LABS: HCT 41.8 % (39.6-50.0); HGB 13.8 g/dL (13.0-17.0); MCH 29.2 pg (27.0-32.0); MCV 88.6 FL (80.0-97.0); Mean Platelet Volume 10.4 FL (9.5-12.2); NRBC Per 100 WBC 0 X 10*3/uL (0.00-0.01); Platelet Count 191 X 10*3/uL (140-440); RBC 4.72 X 10*6/uL (4.40-5.60); RDW 14.2 % (11.5-14.5); WBC 4.39 X 10*3/uL (4.50-10.00)
[2024-05-09 16:00] LABS: ALT 40 U/L (10-49); AST 30 U/L (14-35); Albumin 4.4 g/dL (3.8-4.9); Alkaline Phosphatase 81 U/L (41-126); BUN/Creat Ratio 19.67 Ratio (12.00-20.00); Blood Urea Nitrogen 17.7 mg/dL (9.0-27.0); Calcium 9.3 mg/dL (8.7-10.3); Carbon Dioxide 23.7 mmol/L (21.6-31.8); Chloride 108 mmol/L (96-109); Globulin 2.2 g/dL (1.6-3.3); Glucose 115 mg/dL (70-110); Potassium 4.2 mmol/L (3.5-5.5); Sodium 144 mmol/L (135-145); Total Bilirubin 0.6 mg/dL (0.3-1.2); Total Protein 6.6 g/dL (6.2-8.2)
== END | disposition home or self-care (01) ==
LOC: LABPAT 12:41
PROVIDERS: ATTEND Orthopaedic Surgery
DX: Z01.812 Encounter for preprocedural laboratory examination (principal); M16.12 Unilateral primary osteoarthritis, left hip; E11.9 Type 2 diabetes mellitus without complications; Z22.322 Carrier or suspected carrier of Methicillin resistant Staphylococcus aureus
CPT/HCPCS: 80053; 83036; 85027; 85610; 85730; 86850; 86900; 86901; 87070

== ENCOUNTER 2024-05-16 13:02 | Day surgery (SDC) | payer BC ==
[~2024-05-16 13:02] MED LIST changes: -Acetaminophen-Codeine 300-30mg TAB PO PRN; -DIAZEPAM 5 MG TAB PO ONE; -PREMYELOGRAM MEDICATION REVIEW 1 EACH MISC PO NR; +TRANEXAMIC 1,000 MG/100ML-NACL 1,000 MG in SALINE 1 100ML.BAG IV PRN; +TRANEXAMIC 1,000 MG/100ML-NACL 1,000 MG in SALINE 1 100ML.BAG IVPB PRN
[2024-05-16] MEDS: IV FLUID CONTINUATION 1,000 ML IV ONE (13:21)
[2024-05-16] MEDS: DOCUSATE 100 MG CAP PO PRN (13:56)
[2024-05-16] MEDS: ACETAMINOPHEN TAB 500 MG TAB PO PRN (13:56)
[2024-05-16] MEDS: ONDANSETRON 4 MG/2 ML VIAL IVP PRN (13:56)
[2024-05-16] MEDS: DEXAMETHASONE SOD PHOSPHATE 10 MG/ML 1 ML VIAL IV PRN (13:56)
[2024-05-16] MEDS: oxyCODONE ER 10 MG TAB.ER.12H PO PRN (13:56)
[2024-05-16] MEDS: KETOROLAC 15 MG/ML 1 ML VIAL IVP PRN (13:57)
[2024-05-16] MEDS: FAMOTIDINE 20 MG/2 ML VIAL IVP PRN (13:57)
[2024-05-16] MEDS: MIDAZOLAM 2 MG/2 ML VIAL IVP ONE (14:11)
[2024-05-16] MEDS ORDERED: DEXAMETHASONE SOD PHOSPHATE 4 MG/ML 1 ML VIAL ONE (14:19)
[2024-05-16] MEDS ORDERED: NEOSTIGMINE 1 MG/ML 10 ML VIAL ONE (14:19)
[2024-05-16] MEDS ORDERED: PHENYLEPHRINE-0.9% NACL SYG 1,000 MCG/10 ML SYRINGE ONE (14:19)
[2024-05-16] MEDS ORDERED: LIDOCAINE 1% INJ 10MG/ML (20 ML MDV) ONE (14:19)
[2024-05-16] MEDS ORDERED: fentaNYL (PF) 50 MCG/ML 2 ML AMP ONE (14:19)
[2024-05-16] MEDS ORDERED: ePHEDrine 50 MG/ML 1 ML VIAL ONE (14:19)
[2024-05-16] MEDS ORDERED: MIDAZOLAM 2 MG/2 ML VIAL ONE (14:19)
[2024-05-16] MEDS ORDERED: PROPOFOL 10 MG/ML 20 ML VIAL IV ONE (14:19)
[2024-05-16] MEDS ORDERED: GLYCOPYRROLATE 0.2 MG/ML 2 ML VIAL ONE (14:19)
[2024-05-16] MEDS ORDERED: HYDROmorphone (PF) 1 MG/ML ONE (14:19)
[2024-05-16] MEDS ORDERED: ROCURONIUM 10 MG/ML (5 ML VIAL) IV ONE (14:19)
[2024-05-16] MEDS ORDERED: WATER FOR INJECTION, STERILE 10 ML VIAL IV ONE (14:19)
[2024-05-16] MEDS ORDERED: KETAMINE HCL IN 0.9 % NACL 50 MG/5 ML SYRINGE ONE (14:19)
[2024-05-16] MEDS ORDERED: ROPIVACAINE 5 MG/ML 30 ML VIAL ONE (14:19)
[2024-05-16] MEDS ORDERED: SUCCINYLCHOLINE CHLORIDE 200 MG/10 ML VIAL IV ONE (14:19)
[2024-05-16] MEDS ORDERED: TRANEXAMIC 1,000 MG/100ML-NACL PREMIX BAG ONE (14:19)
[2024-05-16] MEDS: ceFAZolin 3 GM in SODIUM CHLORIDE 0.9% 100 ML IVPB PRN (14:24)
[2024-05-16] MEDS: ROPIVACAINE/EPI/CLONIDINE/KET 50 ML SYRINGE MISCELLANE PRN (14:55)
[2024-05-16] MEDS: LACTATED RINGERS 1,000 ML IV ONE (16:08)
[2024-05-16] MEDS ORDERED: HYDROmorphone 0.5 MG/0.5 ML SYRINGE IVP PRN ×2 (16:23)
[2024-05-16] MEDS ORDERED: NALOXONE 0.4 MG/ML 1 ML VIAL IV PRN (16:23)
[2024-05-16] MEDS ORDERED: diazePAM 5 MG TAB PO PRN (16:23)
[2024-05-16] MEDS ORDERED: hydrOXYzine pamoate 25 MG CAP PO PRN (16:23)
[2024-05-16] MEDS ORDERED: HYDROmorphone 1 MG/ML 1 ML SYRINGE IVP PRN (16:23)
[2024-05-16] MEDS ORDERED: HYDROcodone/APAP 5-325MG 1 EACH TAB PO PRN (16:23)
[2024-05-16] MEDS ORDERED: MAGNESIUM HYDROXIDE 2,400 MG/30 ML CUP PO PRN (16:23)
--- NOTE | 2024-05-16 16:23 | P.OP ---
Date of Procedure: 05/16/24 Preoperative Diagnosis: 1. severe left hip osteoarthritis 2. Lumbar degenerative disc disease 3. BMI 40 Postoperative Diagnosis: Same Procedure(s) Performed: Left direct anterior total hip arthroplasty Implants: 1. Gisela Trident II Acetabular Cup, Size #56 2. Stambaugh Insignia Size #6 Femoral Stem, High Offset 3. Biolox delta femoral head, 36 mm, - 5 mm neck Anesthesia: COLEEN, regional Surgeon: Jorge Copeland Felt Hat Flanging Operator #1: Gurmeet Wall Estimated Blood Loss (ml): 300 IV fluids (ml): 800 Pathology: none sent Condition: stable Disposition: PACU Indications for Procedure: I had a long discussion with the patient in the office on the potential risks and complications of an elective total hip replacement through a direct anterior approach. Risks discussed include, but are certainly not limited to, risks from anesthesia, superficial infection requiring local wound care or antibiotics, deep carrington-prosthetic joint infection and the treatment required to eradicate infection, intraoperative fracture, postoperative periprosthetic fracture, damage to local blood vessels or nerves particularly the lateral femoral cutaneous nerve, delayed wound healing requiring local wound care or possibly surgical debridement, hip dislocation, leg length discrepancy, soft tissue irritation around the total hip implant such as iliopsoas tendinitis or trochanteric bursitis, wear and osteolysis from the implants, squeaking or audible noises, groin pain, thigh pain, heterotopic ossification, stiffness, aseptic loosening of the implants, dissatisfaction with surgical outcome, need for revision surgery, DVT, PE, swelling of the operative extremity, acute coronary event, stroke, failure to thrive, and possibly loss of life or limb. The patient understands that while these are the most common complications after an elective hip replacement there are certainly other less common complications possible. They were given ample time to ask questions regarding the potential complications of a hip replacement. Following our discussion the patient provided their verbal and written consent to go forward with an elective total hip replacement. Operative Findings: Severe left hip osteoarthritis with complete loss of cartilage from the femoral head and acetabulum Description of Procedure: The patient was identified in the preoperative holding area and the correct hip was marked with my initials. I reviewed the procedure and consent with the patient. All of their questions were answered. The patient was then brought back into the operating room by anesthesia. While on the [facility] anesthesia was administered by the anesthesia team. Preoperative antibiotics and tranexamic acid were also given. After the patient was under anesthesia I examined their ankles to determine their preoperative leg length discrepancy. The skin over the anterior aspect of the hip was shaved to remove hair over the site of planned incision. Both feet and ankles were padded with webril and boots for the Mcclellan were applied. The patient was then carefully transferred onto the Mcclellan table. A perineal post was immediately placed. The arms were placed on arm holders and were well-padded. Both boots were secured to the spars on the Mcclellan table. The patient was positioned so that the pelvis was centered over the post. Nonsterile drapes were applied. A timeout was performed identifying the correct patient, operative extremity, and procedure. At this point fluoroscopy was brought in to take preoperative images of the pelvis and operative hip. Using the standing AP pelvis from the office as a template, a comparable image was obtained with fluoroscopy. A metallic bar was used to create a bi-ischial line for use as a reference to leg length adjustments during the procedure. Global offset was also measured on both the operative and nonoperative leg. Fluoroscopy was then brought out and a pre-scrub using a chlorhexidine scrub brush was performed. The operative limb was then prepped and draped in the standard sterile fashion. An anterior longitudinal incision was made lateral and distal to the ASIS. The skin and subcutaneous tissues were incised sharply. The underlying tensor fascia was identified and incised in its midportion. The fascia was dissected free from the underlying muscle and the muscle belly was retracted. A blunt t ipped cobra retractor was placed over the superior neck under the muscle fibers of the gluteus minimus. The deep enveloping fascia of the tensor was incised. The anterior leash of vessels were then identified and cauterized. The fascia between the rectus and the capsule was then incised and the pre-capsular fat was excised. A second Cobra was placed inferior to the neck. The interval between the rectus and iliocapsularis and the hip capsule was developed and a retractor was placed carefully over the anterior rim of the acetabulum. A T-shaped anterior capsulotomy was performed. The superior capsular leaflet was left in place in the inferior capsular flap was excised. The Cobra retractors were placed intracapsularly. We then made a femoral neck osteotomy according to preoperative and intraoperative templating and confirmed the level of the osteotomy using fluoroscopic imaging. The femoral head was removed, passed off to the back table, and sized. The superior capsular flap was excised. Retractors were placed circumferentially exposing the acetabulum. We then circumferentially debrided the acetabulum free of labrum and osteophytes. The pulvinar was removed to fully visualize the cotyloid fossa. We then sequentially reamed to achieve peripheral fit and excellent bleeding subchondral bone. The socket was thoroughly irrigated. The acetabular component was impacted into the appropriate position using fluoroscopy to guide version, inclination, and depth of insertion taking care to have a comparable image of the AP pelvis to the standing image taken in the office. An excellent press-fit was achieved and final position was confirmed using fluoroscopy. The press fit was augmented with bony cancellus dome screws. The liner was then impacted into the socket. Attention was then turned to the femur. The remnant dorsal lateral capsule was excised. The short external rotators were visible and protected. A bone hook was used to confirm appropriate translation of the trochanter away from the acetabulum. The leg was then extended and adducted and the bone hook was used to elevate the femur for broaching. A box osteotome and blunt tipped canal sound was then utilized to gain access to the femoral canal. We then sequentially broached the femur in appropriate anteversion until excellent torsional stability was achieved. The neck cut was brought flush to the trial broach with a calcar planar. A trial neck and head were then placed onto the broach and the hip was atraumatically reduced under direct visualization. External rotation to 90 was performed to assess stability. Fluoroscopy was brought in. An AP and lateral fluoroscopic image of the proximal femur was obtained to assess position and fill of the trial broach. An AP of the pelvis was then obtained and matched to the preoperative image taken. A bi-ischial bar was then placed and measurements were taken to assess changes in length and offset. The hip was then carefully dislocated, the proximal femur was exposed, and the trial implants were removed. The wound and proximal femur was thoroughly irrigated using sterile saline and pulsatile lavage. The final femoral implant was dispensed and gently tapped into place generating an excellent press-fit. The trunnion was cleansed and the final head was tapped into place to engage the Hoover taper. The acetabulum was irrigated and visualized to be free of debris. The hip was carefully reduced. Stability was checked clinically with external rotation to 90 and there was no evidence of instability. Final fluoroscopic images were taken. The wound was then thoroughly irrigated and soaked with a dilute Betadine rinse for 3 minutes. 3 L of sterile saline was irrigated through the wound using pulsatile lavage. Local anesthetic cocktail was injected into the soft tissues around the surgical field. The wound was then closed in layers. A sterile dressing was placed over the surgical incision. The drapes were taken down and the patient was carefully transferred off of the Mcclellan table. Following removal of the boots the leg lengths felt acceptable. The patient was then taken to recovery room having tolerated the procedure well. Gurmeet Rojo was required as a skilled economic research assistant due to the complexity of surgery for patient positioning, draping, exposure, retraction, closure of wound, and application of dressing. PLAN: The patient can weight-bear as tolerated on the operative extremity. 2 doses of postoperative antibiotics. DVT prophylaxis with aspirin 81 mg twice a day based on preoperative risk stratification. Physical therapy for gait training.
--- NOTE | 2024-05-16 16:37 | FL ---
EXAMINATION TYPE: FL guidance operating room, XR Hip Limited LT DATE OF EXAM: 05/16/2024 4:20 PM COMPARISON: Pre Operative Images if available both CT/MRI or plain film CLINICAL INDICATION: Male, 63 years old with history of M16.12 OA LEFT HIP; TECHNIQUE: FL guidance operating room, XR Hip Limited LT, multiple fluoroscopic images provided for p rocedure. Total fluoroscopy time: 37.4 seconds Total submitted images to PACS: 7 DAP: 4.7324 mGym2 Gycm2 uGym2 cGycm2 or equivalent. FINDINGS: Fluoroscopic images during internal fixation/arthroplasty demonstrate hardware in appropriate positio n. Hardware appears intact. No immediate complication identified. IMPRESSION: 1. No evidence for intraoperative complication. 2. Please see the operative/procedural note for further details. [facility], , 05/16/2024 4:35 PM
[2024-05-16] MEDS: HYDROmorphone 0.5 MG/0.5 ML SYRINGE IVP PRN (17:10)
[2024-05-16] MEDS: LACTATED RINGERS 1,000 ML IV SCH (18:21)
[2024-05-16] MEDS: SODIUM CHLORIDE 0.9% 1,000 ML IV SCH (18:24)
--- NOTE | 2024-05-16 19:32 | P.ANPRN ---
Procedure Note - Anesthesia - Nerve Block Performed Left Woodrow Single Time Out Performed: Yes Date of Procedure: 05/16/24 Procedure Start Time: 14:10 Procedure Stop Time: 14:14 Location of Patient: PreOp Indication: Acute Post-Operative Pain, Requested by Surgeon Sedation Type: Sedate with meaningful contact maintained Preparation: Sterile Prep Position: Supine Needle Types: Pajunk Needle Gauge: 21 Ultrasound used to visualize needle placement: Yes Ultrasound used to observe medication spread: Yes Blood Aspirated: No Pain Paresthesia on Injection Noted: No Resistance on Injection: Normal Image Stored and Saved: Yes Events: Uneventful and Well Tolerated (Ropivacaine 0.5% 20 cc plus dexamethasone 4 mg)
[2024-05-16] MEDS: SENNOSIDES-DOCUSATE SODIUM 1 EACH TAB PO SCH (20:55)
[2024-05-16] MEDS: ASPIRIN 81 MG PO SCH (20:55)
[2024-05-16] MEDS: DEXAMETHASONE SOD PHOSPHATE 4 MG/ML 1 ML VIAL IV ONE (20:55)
[2024-05-16] MEDS: ceFAZolin 3 GM in SODIUM CHLORIDE 0.9% 100 ML IVPB SCH (21:48)
[2024-05-17] MEDS: HYDROcodone/APAP 10-325MG 1 EACH TAB PO PRN (06:01)
[2024-05-17] MEDS: MELOXICAM 7.5 MG TAB PO SCH (08:11)
[2024-05-17] MEDS: MULTIVITAMINS, THERA 1 EACH TAB PO SCH (08:11)
[2024-05-17] MEDS: FAMOTIDINE 20 MG TAB PO SCH (08:11)
--- NOTE | 2024-05-17 08:15 | P.PN ---
Subjective Progress Note Date: 05/17/24 No acute events overnight. Patient is doing well this morning. The pain in their hip is mild. The pain is controlled with oral pain medication. They have walked to the bathroom with a walker and assistance. They deny chest pain or shortness of breath. Objective - Vital Signs Vital signs: Vital Signs Temp 97.3 F L 05/17/24 01:01 Pulse 90 05/17/24 01:01 Resp 16 05/17/24 01:01 BP 139/70 05/17/24 01:01 Pulse Ox 94 L 05/17/24 01:01 FiO2 Intake & Output 05/16/24 05/17/24 05/17/24 18:59 06:59 18:59 Intake Total 1100 Output Total 300 1000 Balance 800 -1000 Weight 134.1 kg Intake: IV 1100 Output: Urine 1000 Straight 600 Estimated Blood Loss 300 Other: # Voids 1 - Exam Patient was examined at bedside. Patient is resting comfortably in a chair. No apparent distress. They are awake, alert and able to answer questions. On inspection the surgical hip dressing is intact, there is no drainage or strikethrough. The skin surrounding the dressing is free of erythema. There is mild swelling in the operative thigh. Operative femoral nerve function is intact. The operative calf is soft to compression. The patient is able to actively plantarflex and dorsiflex their operative ankle and toes. Their operative foot appears well perfused. Assessment and Plan Assessment: Postop day #1 status post left total hip arthroplasty for severe left hip osteoarthritis Left hip pain Plan: Weight-bear as tolerated on the operative extremity. Use a walker to ambulate. Leave surgical dressing in place. Physical therapy for gait training and mobilization. Internal medicine for perioperative medical management. Disposition: Patient will work with physical therapy and if passes physical therapy would like to discharge home with home health care later today.
--- NOTE | 2024-05-17 08:23 | P.DS ---
Providers Attending physician: Jorge Copeland Consults: 05/16/24 16:23 Consult Physician Routine Consulting Provider: Shira Lopez Consult Reason/Comments: post op medical management Do you want consulting provider notified?: Yes Primary care physician: Ramona Huertaarlo [facility] Course: Patient is a 63-year-old male who failed conservative management of severe left hip osteoarthritis. On 05/16/2024 patient presented to preop for scheduled left total hip arthroplasty with Dr. Copeland. Patient tolerated the procedure well. Patient was transferred to the orthopedic floor. Patient had no acute events overnight. Patient will work with physical therapy and if passes physical therapy patient would like to discharge home with home health care later today. Patient's pain has been controlled with oral pain medication. Patient will have anticoagulation with aspirin 81 mg twice daily for 30 days. Assessment: Status post left total hip arthroplasty Left hip osteoarthritis Left hip pain Plan - Discharge Summary Discharge Rx Participant: Yes New Discharge Prescriptions: New Aspirin 81 mg PO BID #60 tab HYDROcodone/APAP 5-325MG [[place] 5] 1 - 2 each PO Q6HR PRN #48 tab PRN Reason: Pain Omeprazole 20 mg PO DAILY #30 tab Sennosides-Docusate Sodium [Senokot-S] 1 tab PO BID PRN #60 tablet PRN Reason: Constipation Diclofenac Sodium [Voltaren] 75 mg PO BID #60 tab Ondansetron [Zofran] 4 mg PO Q6HR PRN #30 tab PRN Reason: Nausea No Action Saw/Vit E/Sod Maricarmen/Lyc/Beta/Pyg [Prostate Health Caplet] 1 tab PO BID Amlodipine Besylate/Valsartan [Amlodipine Besylate/Valsartan 5-320 mg] 1 tab PO HS traMADol HCL 50 mg PO Q6H PRN PRN Reason: Pain Tamsulosin HCl [Flomax] 0.4 mg PO BID Meloxicam [Mobic] 15 mg PO DAILY Berberine Chloride [Berberine] 1 tab PO TID-W/MEALS Balance Of Nature 3 tab PO DAILY Discharge Medication List Amlodipine Besylate/Valsartan [Amlodipine Besylate/Valsartan 5-320 mg] 1 tab PO HS 05/11/24 [History] Balance Of Nature 3 tab PO DAILY 05/11/24 [History] Berberine Chloride [Berberine] 1 tab PO TID-W/MEALS 05/11/24 [History] Meloxicam [Mobic] 15 mg PO DAILY 05/11/24 [History] Saw/Vit E/Sod Maricarmen/Lyc/Beta/Pyg [Prostate Health Caplet] 1 tab PO BID 05/11/24 [History] Tamsulosin HCl [Flomax] 0.4 mg PO BID 05/11/24 [History] traMADol HCL 50 mg PO Q6H PRN 05/11/24 [History] Aspirin 81 mg PO BID #60 tab 05/17/24 [Rx] Diclofenac Sodium [Voltaren] 75 mg PO BID #60 tab 05/17/24 [Rx] HYDROcodone/APAP 5-325MG [[place] 5] 1 - 2 each PO Q6HR PRN #48 tab 05/17/24 [Rx] Omeprazole 20 mg PO DAILY #30 tab 05/17/24 [Rx] Ondansetron [Zofran] 4 mg PO Q6HR PRN #30 tab 05/17/24 [Rx] Sennosides-Docusate Sodium [Senokot-S] 1 tab PO BID PRN #60 tablet 05/17/24 [Rx] Follow up Appointment(s)/Referral(s): Jorge Copeland MD [Medical Doctor] - 2 Weeks Activity/Diet/Wound Care/Special Instructions: 1. Weight-bear as tolerated on your operative extremity unless instructed otherwise. Use a walker or other assistive device to ambulate. 2. Leave surgical dressing in place. If your dressing becomes saturated with blood, there is drainage, or the dressing becomes loose please contact the office. 3. It is okay to shower with your surgical dressing, but do not submerge in water (no hot tubs, bath's, swimming etc.) 4. Make sure to take her blood clot prevention medication as prescribed (aspirin, Eliquis, Xarelto, and Plavix are commonly prescribed medications for blood clot prevention) 5. While taking [place] or Percocet for pain make sure you're taking a stool softener (Colace) and drink lots of water. 6. Keep all follow-up appointments as scheduled. You will usually be seen in 1-2 weeks following surgery. 7. Please contact the office with any questions or concerns [phone] Discharge Disposition: HOME WITH HOME HEALTH SERVICES
[2024-05-17 08:53] LABS: Basophils # (A) 0.01 X 10*3/uL (0.00-0.10); Basophils % (A) 0.1 %; Eosinophils # (A) 0 X 10*3/uL (0.04-0.35); Eosinophils % (A) 0 %; HCT 38.6 % (39.6-50.0); HGB 12.6 g/dL (13.0-17.0); Lymphocytes # (A) 0.89 X 10*3/uL (0.90-5.00); Lymphocytes % (A) 6.6 %; MCH 28.8 pg (27.0-32.0); MCHC 32.6 g/dL (32.0-37.0); MCV 88.3 FL (80.0-97.0); Mean Platelet Volume 10.2 FL (9.5-12.2); Monocytes # (A) 0.53 X 10*3/uL (0.20-1.00); Monocytes % (A) 3.9 %; NRBC Per 100 WBC 0 X 10*3/uL (0.00-0.01); Neutrophils # (A) 12.03 X 10*3/uL (1.80-7.70); Neutrophils % (A) 88.7 %; Platelet Count 192 X 10*3/uL (140-440); RBC 4.37 X 10*6/uL (4.40-5.60); RDW 14.2 % (11.5-14.5); WBC 13.55 X 10*3/uL (4.50-10.00)
[2024-05-17 08:56] VITALS: BP 119/71; PULSE 86; RESP 17; TEMP 98.2
[2024-05-17] MEDS ORDERED: TAMSULOSIN 0.4 MG CAP.ER.24H PO SCH (09:45)
--- NOTE | 2024-05-18 20:19 | P.CONS ---
History of Present Illness - Reason for Consult Consult date: 05/17/24 - History of Present Illness This is a pleasant 63-year-old male with medical history significant for hypertension, hyperlipidemia, osteoarthritis, BPH, sleep apnea with CPAP use, occasional drinker never smoker. Patient comes into the hospital for a scheduled left hip arthroplasty. He is evaluated today postoperative day #1 he states his pain is well-controlled at this time. He is not having any shortness of breath or chest pain. He has been able to urinate without difficulty at this time. Blood cell count is 13.55 postoperative which is can be expected and patient is encouraged to continue to use his incentive spirometer 10 times an hour while awake. He worked with physical therapy today and did well. He is not cleared for discharge home. Patient's blood pressure has been running in the 110s systolic he is maintained on amlodipine and valsartan combination tablet at home and patient was instructed to hold this and monitor his blood pressure. If it becomes elevated above 140 systolic instructed patient he can resume his home medication. Continue on a bowel regimen while using narcotics for pain management. He will continue on aspirin 81 mg twice a day for the next 30 days as recommended by orthopedics for DVT prophylaxis. Patient was cleared by orthopedics for discharge home and medically he is also stable for discharge home. REVIEW OF SYSTEMS: CONSTITUTIONAL: No fever, no malaise, no fatigue. HEENT: No recent visual problems or hearing problems. Denied any sore throat. CARDIOVASCULAR: No chest pain, orthopnea, PND, no palpitations, no syncope. PULMONARY: No shortness of breath, no cough, no hemoptysis. GASTROINTESTINAL: No diarrhea, no nausea, no vomiting, no abdominal pain. NEUROLOGICAL: No headaches, no weakness, no numbness. HEMATOLOGICAL: Denies any bleeding or petechiae. GENITOURINARY: Denies any burning micturition, frequency, or urgency. MUSCULOSKELETAL/RHEUMATOLOGICAL: Denies any joint pain, swelling, or any muscle pain. ENDOCRINE: Denies any polyuria or polydipsia. The rest of the 14-point review of systems is negative. PHYSICAL EXAMINATION: GENERAL: The patient is alert and oriented x3, not in any acute distress. Well developed, well nourished. HEENT: Pupils are round and equally reacting to light. EOMI. No scleral icterus. No conjunctival pallor. Normocephalic, atraumatic. No pharyngeal erythema. No thyromegaly. CARDIOVASCULAR: S1 and S2 present. No murmurs, rubs, or gallops. PULMONARY: Chest is clear to auscultation, no wheezing or crackles. ABDOMEN: Soft, nontender, nondistended, normoactive bowel sounds. No palpable organomegaly. MUSCULOSKELETAL: No joint swelling or deformity. EXTREMITIES: No cyanosis, clubbing, or pedal edema. NEUROLOGICAL: Gross neurological examination did not reveal any focal deficits. SKIN: No rashes. Assessment and plan osteoarthritis status post left hip arthroplasty postoperative day #1 Patient hypertension currently normotensive recommending to hold his blood pressure medication as mentioned above History of hyperlipidemia not currently on any statin therapy History of BPH maintained on Flomax which has been continued History of sleep apnea with CPAP use GI prophylaxis DVT prophylaxis Full code Thank you kindly for this consultation medically patient stable for discharge home patient will hold his blood pressure medication at discharge and as directed admitted to check his blood pressure daily and keep a log for follow-up with his PCP. Patient has been discharged on a bowel regimen. And ordered oral Austin for pain management. Patient has a follow-up with his PCP Dr. Diaz as well as orthopedics Dr. Copeland. Patient discharged home with home care with physical therapy. The impression and plan of care has been dictated by Alena Son, Nurse Practitioner as directed. Dr. Marlon MD I have performed a history and physical examination and medical decision making of this patient, discussed the same with the dictator, and agree with the dictators assessment and plan as written, documented as a scribe. Based on total visit time, I have performed more than 50% of this visit. Past Medical History Past Medical History: Hyperlipidemia, Hypertension, Osteoarthritis (OA), Prostate Disorder Additional Past Medical History / Comment(s): "broke back 40 years ago", BPH, uses CPAP History of Any Multi-Drug Resistant Organisms: None Reported Past Surgical History: Back Surgery, Orthopedic Surgery Additional Past Surgical History / Comment(s): lumbar fusion, plantar fascititis, lt ankle impingement, left knee arthroscopy, spinal stimulator Rt. buttocks Past Anesthesia/Blood Transfusion Reactions: No Reported Reaction Past Psychological History: No Psychological Hx Reported Smoking Status: Never smoker Past Alcohol Use History: Occasional Additional Past Alcohol Use History / Comment(s): 6-7 drinks/month Past Drug Use History: None Reported - Past Family History Mother Family Medical History: Cancer Additional Family Medical History / Comment(s): skin cancer Sister(s) Family Medical History: Cancer Additional Family Medical History / Comment(s): breast Medications and Allergies Home Medications Medication Instructions Recorded Confirmed Type Amlodipine Besylate/Valsartan 1 tab PO HS 05/11/24 05/16/24 History [Amlodipine Besylate/Valsartan 5-320 mg] Balance Of Nature 3 tab PO DAILY 05/11/24 05/16/24 History Berberine Chloride [Berberine] 1 tab PO TID-W/MEALS 05/11/24 05/16/24 History Meloxicam [Mobic] 15 mg PO DAILY 05/11/24 05/16/24 History Saw/Vit E/Sod Maricarmen/Lyc/Beta/Pyg 1 tab PO BID 05/11/24 05/16/24 History [Prostate Health Caplet] Tamsulosin HCl [Flomax] 0.4 mg PO BID 05/11/24 05/16/24 History traMADol HCL 50 mg PO Q6H PRN 05/11/24 05/16/24 History Aspirin 81 mg PO BID #60 tab 05/17/24 Rx Diclofenac Sodium [Voltaren] 75 mg PO BID #60 tab 05/17/24 Rx HYDROcodone/APAP 5-325MG [Austin 5] 1 - 2 each PO Q6HR PRN #48 tab 05/17/24 Rx Omeprazole 20 mg PO DAILY #30 tab 05/17/24 Rx Ondansetron [Zofran] 4 mg PO Q6HR PRN #30 tab 05/17/24 Rx Sennosides-Docusate Sodium 1 tab PO BID PRN #60 tablet 05/17/24 Rx [Senokot-S] Allergies Allergy/AdvReac Type Severity Reaction Status Date / Time iodine Allergy Rash/Hives Verified 05/16/24 13:26 Physical Exam Vitals: Vital Signs Temp Pulse Resp BP Pulse Ox 05/17/24 08:00 98.2 F 86 17 119/71 97 05/17/24 01:01 97.3 F L 90 16 139/70 94 L 05/16/24 19:10 98.4 F 87 17 135/67 94 L 05/16/24 18:10 97.7 F 93 19 114/66 94 L 05/16/24 17:38 92 14 138/62 97 05/16/24 17:23 90 14 134/63 97 05/16/24 17:08 96 16 133/60 96 05/16/24 16:53 96 14 126/56 98 05/16/24 16:38 97.4 F L 89 16 108/53 99 05/16/24 14:20 89 16 110/55 98 05/16/24 13:30 98.1 F 96 16 129/65 95 Intake and Output 05/16/24 05/17/24 05/17/24 22:59 06:59 14:59 Intake Total 0 200 Output Total 300 1000 Balance -300 -1000 200 Intake: IV 0 Oral 200 Output: Urine 1000 Straight 600 Estimated Blood Loss 300 Other: # Voids 1 1 Weight 134.1 kg Results CBC & Chem 7: 05/17/24 03:32 Labs: Abnormal Lab Results - Last 24 Hours (Table) 05/17/24 Range/Units 03:32 WBC 13.55 H (4.50-10.00) X 10*3/uL RBC 4.37 L (4.40-5.60) X 10*6/uL Hgb 12.6 L (13.0-17.0) g/dL Hct 38.6 L (39.6-50.0) % Immature Gran # 0.09 H (0.00-0.04) X 10*3/uL Neutrophils # 12.03 H (1.80-7.70) X 10*3/uL Lymphocytes # 0.89 L (0.90-5.00) X 10*3/uL Eosinophils # 0 L (0.04-0.35) X 10*3/uL Assessment and Plan Time with Patient: Less than 30
== END 2024-05-17 12:12 | disposition home health service (06) ==
LOC: OR 13:02 → 4SSUR 17:43 → OR 05-17 12:12
PROVIDERS: ATTEND Orthopaedic Surgery
DX: M16.12 Unilateral primary osteoarthritis, left hip (principal); G89.18 Other acute postprocedural pain; M51.369 Other intervertebral disc degeneration, lumbar region without mention of lumbar back pain or lower extremity pain; I10 Essential (primary) hypertension; G47.33 Obstructive sleep apnea (adult) (pediatric); E78.5 Hyperlipidemia, unspecified; F10.90 Alcohol use, unspecified, uncomplicated; Z79.1 Long term (current) use of non-steroidal anti-inflammatories (NSAID); Z68.41 Body mass index [BMI] 40.0-44.9, adult; Z79.82 Long term (current) use of aspirin; Z79.899 Other long term (current) drug therapy
CPT/HCPCS: 97161; 64999; 85025; 73501; 27130; C1776; J2250; J1100; J0690 ×2; J2405; J3490; J1885; J1171